=== PATIENT | male | born 1985 | race Caucasian/White ===

== ENCOUNTER 2018-02-27 19:50 | Inpatient (IN) | payer OTHER ==
[~2018-02-27] VITALS: Ht 177.8 cm; Wt 88.9 kg
[~2018-02-27 19:50] MED LIST: ANAPROX DS550 M1 PO; PEN-VEE K,VEET500 MG PO; ULTRAM50 MG PO
[2018-02-27 21:25] LABS: HEMATOCRIT 46.1 % (38.0-50.0); HEMOGLOBIN 16.7 G/DL (12.5-16.6); MCH 30.2 PG (29.0-34.0); MCHC 36.2 G/DL (30.0-36.0); MCV 83.4 FL (86-99); RBC DIS.WIDTH-CV 11.6 % (11.8-14.6); RED BLOOD COUNT 5.53 M/uL (4.00-5.50); WHITE BLOOD COUNT 7.2 K/uL (4.1-10.2)
[2018-02-27 21:33] LABS: AMPHETAMINE NEGATIVE (500 ng/mL); BARBITURATES NEGATIVE (200 ng/mL); BENZODIAZEPINES NEGATIVE (150 ng/mL); BUPRENORPHINE NEGATIVE (10 ng/mL); COCAINE NEGATIVE (150 ng/mL); METHADONE NEGATIVE (200 ng/mL); METHAMPHETAMINE NEGATIVE (500 ng/mL); OPIATES (MORPHINE) NEGATIVE (100 ng/mL); OXYCODONE NEGATIVE (100 ng/mL); PHENCYCLIDINE NEGATIVE (25 ng/mL); PROPOXYPHENE NEGATIVE (300 ng/mL); THC CANNABINOIDS NEGATIVE (50 ng/mL); TRICYCLIC ANTIDEPRESSANTS NEGATIVE (300 ng/mL)
[2018-02-27 21:36] LABS: CHLORIDE 108 mEq/L (99-109); POTASSIUM 3.6 mEq/L (3.7-5.4); SODIUM 148 mEq/L (136-147)
[2018-02-27 21:38] LABS: GLUCOSE 96 mg/dL (70-99)
[2018-02-27 21:41] LABS: SERUM ETHYL ALCOHOL 208 mg/dL
[2018-02-27 21:42] LABS: GFR ESTIMATE (CALCULATED) > 59 mL/min/ (58.99-99999)
[2018-02-27 21:43] LABS: UREA NITROGEN (BUN) 5 mg/dL (9-23)
[2018-02-27 22:07] LABS: PLAT.SUFFICIENCY ADEQUATE; PLATELET COUNT 262 K/uL (156-360)
[2018-02-27 22:37] LABS: ACETAMINOPHEN (TYLENOL) < 10 mcg/mL (10-30); SALICYLATE < 5.0 MG/DL (15-30)
[2018-02-27 23:27] LABS: APPEARANCE CLEAR ((CLEAR)); BILIRUBIN NEGATIVE; BLOOD NEGATIVE; COLOR STRAW ((YELLOW)); GLUCOSE (STRIP) NEGATIVE; KETONES NEGATIVE; LEUKOCYTES NEGATIVE; NITRITE NEGATIVE; PROTEIN (STRIP) NEGATIVE; SPECIFIC GRAVITY 1.005 (1.000-1.030); UCUL ADDED? NO; UROBILINOGEN 0.2 MG/DL (0.2-1.0)
[2018-02-28 05:14] VITALS: BP 147/98
[2018-02-28 05:20] VITALS: BP 147/98
[2018-02-28 07:47] VITALS: BP 139/76
[2018-02-28 16:24] VITALS: BP 143/80
[2018-03-01 07:48] VITALS: BP 133/97
[2018-03-01 10:45] VITALS: BP 157/109
[2018-03-01 15:21] VITALS: BP 139/95
[2018-03-02 07:50] VITALS: BP 124/84
== END 2018-03-02 12:33 | disposition home or self-care (01) | DRG 885 ==
LOC: EME 19:50 → 1WEST 02-28 03:32 → EDOF 02-28 03:32 → 1WEST 02-28 03:32 → ENRESERV 02-28 04:26 → 1WEST 02-28 05:02
PROVIDERS: Emergency Medicine
DX: F20.0 Paranoid schizophrenia (principal); F10.129 Alcohol abuse with intoxication, unspecified; Y90.7 Blood alcohol level of 200-239 mg/100 ml; F31.9 Bipolar disorder, unspecified; R35.0 Frequency of micturition; R31.9 Hematuria, unspecified; F40.10 Social phobia, unspecified; R45.850 Homicidal ideations; I10 Essential (primary) hypertension; Z91.14 Patient's other noncompliance with medication regimen; Z91.19 Patient's noncompliance with other medical treatment and regimen; Z87.891 Personal history of nicotine dependence; Z81.8 Family history of other mental and behavioral disorders
CPT/HCPCS: 80048; 81003; 85027; 90837; 97150 GO; 99281; 99284; G0480